=== PATIENT | male | born 1975 | race Caucasian/White ===

== ENCOUNTER 2021-04-20 10:47 | Emergency (ER) | payer BC ==
[~2021-04-20] VITALS: Ht 193 cm; Wt 129.5 kg
[~2021-04-20 10:47] MED LIST: LISINOPRIL20 MG PO; NABUMETONE500 MG PO; PRAVACHOL 40MG40 MG PO
[2021-04-20 10:52] VITALS: TEMP 97.6
[2021-04-20 12:17] LABS: HEMATOCRIT 43.3 % (42.0-52.0); HEMOGLOBIN 14.9 g/dl (13.5-18.0); MEAN CELL VOLUME 86 fl (80.0-100.0); MEAN CORPUSCULAR HEMOGLOBIN 30 pg (27.0-31.0); MEAN CORPUSCULAR HGB CONC 34 g/dl (33.0-37.0); PLATELET COUNT 221 K/mm3 (130-400); RED BLOOD COUNT 5.02 M/mm3 (4.20-5.60); REDCELL DISTRIBUTION WIDTH-CV 11.8 % (11.5-14.5)
[2021-04-20 12:21] LABS: ALBUMIN 3.9 gm/dL (3.5-5.0); BILIRUBIN,TOTAL 0.5 mg/dL (0.0-1.0); CALCIUM 9.1 mg/dL (8.4-10.2); CREATININE, serum 0.75 (0.66-1.25); TOTAL PROTEIN 7.6 gm/dL (6.4-8.2)
[2021-04-20 12:42] LABS: BAND 4 % (0-10); LYMPHOCYTE 19 % (20.0-51.0); METAMYELOCYTE 1 % (0-0); NEUTROPHILS 71 % (42.0-75.2); PLATELET ESTIMATE NORMAL (NORMAL)
[2021-04-20 13:50] VITALS: BP 114/76; PULSE 90
== END 2021-04-20 13:52 | disposition home or self-care (01) ==
LOC: COL.ER 10:47
PROVIDERS: Family Medicine
DX: U07.1 COVID-19 (principal); J12.82 Pneumonia due to coronavirus disease 2019; J98.11 Atelectasis
CPT/HCPCS: J1815; J7030; Q0244

== ENCOUNTER 2021-05-03 12:23 | Emergency (ER) | payer BC ==
[~2021-05-03] VITALS: Ht 193 cm; Wt 129.5 kg
[2021-05-03 12:34] VITALS: TEMP 98.5
[2021-05-03 13:25] LABS: BASO # 0.1 (0.0-0.2); BASO % 0.9 % (0.0-2.0); EOS # 0.1 (0.0-0.7); EOS % 2.6 % (0-4.0); GRAN # 3.2 (1.4-6.5); GRAN % 58.6 % (42.2-75.2); HEMATOCRIT 41.7 % (42.0-52.0); HEMOGLOBIN 14.5 g/dl (13.5-18.0); LYMPH # 1.5 (1.2-3.4); MEAN CELL VOLUME 87 fl (80.0-100.0); MEAN CORPUSCULAR HEMOGLOBIN 30 pg (27.0-31.0); MEAN CORPUSCULAR HGB CONC 35 g/dl (33.0-37.0); MEAN PLATELET VOLUME 11.1 fl (7.4-10.4); MONO # 0.6 (0.1-0.6); MONO % 10.7 % (1.7-9.3); PLATELET COUNT 225 K/mm3 (130-400); REDCELL DISTRIBUTION WIDTH-CV 12.3 % (11.5-14.5)
[2021-05-03 13:44] LABS: ALANINE AMINOTRANSFERASE 21 U/L (4-49); ALKALINE PHOSPHATASE 79 U/L (50-136); ANION GAP 11 mmol/L (7-16); AST,SGOT 26 U/L (15-37); BILIRUBIN,TOTAL 0.3 mg/dL (0.0-1.0); BLOOD UREA NITROGEN 8 mg/dL (9-20); CALCIUM 8.8 mg/dL (8.4-10.2); CARBON DIOXIDE 23 mmol/L (22-30); CHLORIDE 99 mmol/L (98-107); CREATININE, serum 0.72 (0.66-1.25); POTASSIUM 4.4 mmol/L (3.4-5.0); SODIUM 133 mmol/L (137-145); TOTAL PROTEIN 6.9 gm/dL (6.4-8.2)
[2021-05-03 13:45] LABS: GLUCOSE 493 mg/dL (74-106)
[2021-05-03 14:02] LABS: TROPONIN-I < 0.012 ng/mL (0.000-0.035)
[2021-05-03] MEDS ORDERED: DOXYCYCLINE 10100 MG PO (14:03)
[2021-05-03] MEDS ORDERED: ZITHROMAX Z PA250 MG PO (14:03)
[2021-05-03 14:11] VITALS: BP 133/83; PULSE 96
== END 2021-05-03 14:20 | disposition home or self-care (01) ==
LOC: COL.ER 12:23
PROVIDERS: Physician Assistant
DX: U07.1 COVID-19 (principal); J12.82 Pneumonia due to coronavirus disease 2019; E11.65 Type 2 diabetes mellitus with hyperglycemia; E78.5 Hyperlipidemia, unspecified; I10 Essential (primary) hypertension; E66.9 Obesity, unspecified; F17.220 Nicotine dependence, chewing tobacco, uncomplicated; Z79.899 Other long term (current) drug therapy
CPT/HCPCS: J0696; J1100; J7030